=== PATIENT | male | born 1955 | race Caucasian/White ===

== ENCOUNTER 2017-12-17 21:43 | Emergency (ER) | payer OTHER ==
--- NOTE | 2017-12-17 22:49 | ED ---
Throat Pain/Nasal Congestion - HPI Summary HPI Summary: Pt is 62 y/o M who presents to ED c/o visual changes. He has been seeing black little floaters in his eyes, but other than that he notes his sense of vision is normal. This morning at 08:00 he was walking his dog when the dog began running, and the pt fell and believes he hit his head. He does not recall hitting his head, but noticed a lump shortly after. Denies LOC. Rates his pain intensity as 0/10 in severity at triage. - History of Current Complaint Chief Complaint: EDEyeProblem Time Seen by Provider: 12/17/17 22:14 Hx Obtained From: Patient Onset/Duration: Sudden Onset, Lasting Hours, Still Present Associated Signs And Symptoms: Positive: Negative - Allergies/Home Medications Allergies/Adverse Reactions: Allergies Allergy/AdvReac Type Severity Reaction Status Date / Time Penicillins Allergy Hives Verified 12/17/17 21:45 PMH/Surg Hx/FS Hx/Imm Hx Endocrine/Hematology History: Denies: Hx Anticoagulant Therapy Sensory History: Denies: Hx Contacts or Glasses Infectious Disease History: No Infectious Disease History: Denies: Traveled Outside the [place] in Last 30 Days - Social History Alcohol Use: Occasionally Substance Use Type: Reports: None Smoking Status (MU): Former Smoker Review of Systems Positive: Other - "black little floaters" Positive: Other - Lump on head Negative: Syncope All Other Systems Reviewed And Are Negative: Yes Physical Exam - Summary Physical Exam Summary: Appearance: Well-appearing, Well-nourished, lying in bed comfortable Skin: Warm, dry, no obvious rash ENT: mucous membranes moist Neck: deferred Respiratory: No signs of respiratory distress Cardiovascular: Appears well perfused, pulses are nml Abdomen: deferred Musculoskeletal: Moving all 4 extremities without obvious discomfort Neurological: Awake and alert, mentation is normal, speech is fluent and appropriate Psychiatric: affect is normal, does not appear anxious or depressed Triage Information Reviewed: Yes Vital Signs On Initial Exam: Initial Vitals Temp Pulse Resp BP Pulse Ox 97.7 F 40 20 141/77 100 12/17/17 21:44 12/17/17 21:44 12/17/17 21:44 12/17/17 21:44 12/17/17 21:44 Vital Signs Reviewed: Yes Eyes: Positive: Normal, EOMI, NERIS, Conjunctiva Clear, Other: - There is no traumatic hyphema noted. The globe appears to be intact. There is no subconjunctival hemorrhage. There is some periorbital ecchymosis without significant swelling. Peripheral vision millard appear to be grossly intact to confrontation. Extraocular movements are intact. Visual acuity appears to be good with 20/30 to 20/40 vision in both eyes. Diagnostics - Vital Signs Vital Signs Temp Pulse Resp BP Pulse Ox 12/17/17 21:44 97.7 F 40 20 141/77 100 - Laboratory Lab Statement: Any lab studies that have been ordered have been reviewed, and results considered in the medical decision making process. EENT Course/Dx - Course Course Of Treatment: This is a 62-year-old man with symptoms concerning for traumatic retinal detachment or retinal injury. His visual acuity is quite good and there are no signs of globe injury. I spoke with the supervisor farm equipment maintenance recreation facility manager, who will see the patient in his clinic in the morning. I explained the importance of close follow-up with the supervisor farm equipment maintenance for a more apprehensive exam of the retina. The patient indicated that he will be following through with that. - Diagnoses Provider Diagnoses: Blunt trauma of eye - Provider Notifications Discussed Care Of Patient With: Malik Mar Time Discussed With Above Provider: 20:30 Instructed by Provider To: Other - Dr. Mar will see pt in his clinic in the morning. Discharge - Sign-Out/Discharge Documenting (check all that apply): Patient Departure - Discharge - Discharge Plan Condition: Good Disposition: HOME Referrals: Malik Mar MD [Medical Doctor] - Additional Instructions: Your symptoms are concerning for a problem in the retina of the right eye, related to the trauma. You will need a more comprehensive exam by the supervisor farm equipment maintenance in his clinic at [address] [place] [address] in [place]. He will meet you there at 10 am. The clinic will look closed but he will be there. - Attestation Statements Document Initiated by Scribe: Yes Documenting Scribe: Javed Hazel Provider For Whom Scribe is Documenting (Include Credential): Dr. Ron Mckee MD Scribe Attestation: Javed Crisostomo, scribed for Dr. Ron Mckee MD on 12/18/17 at 0005.
[2017-12-17 22:55] VITALS: BP 00/00
== END 2017-12-17 22:54 | disposition home or self-care (01) ==
LOC: ED 21:43
DX: S05.90XA Unspecified injury of unspecified eye and orbit, initial encounter (principal); W18.30XA Fall on same level, unspecified, initial encounter; Y93.K1 Activity, walking an animal; Y92.9 Unspecified place or not applicable; Z88.0 Allergy status to penicillin; Z87.891 Personal history of nicotine dependence
CPT/HCPCS: 99281